=== PATIENT | female | born 1965 | race Caucasian/White ===

== ENCOUNTER 2016-04-27 01:43 | Inpatient (IN) | payer OTHER ==
[~2016-04-27] VITALS: Ht 162.6 cm; Wt 92.9 kg
[~2016-04-27 01:43] MED LIST: ADDERALL XR 2020 MG PO; AMBIEN10 MG PO; ATARAX,VISTARIL25 MG PO; BENTYL20 MG PO; CARAFATE1 GM PO; CELEBREX200 MG PO; CHANTIX1 MG PO; CLINDAGEL TP; COZAAR25 MG PO; DILAUDID2 MG PO; EFFEXOR XR75 MG PO; HYDROXYZINE PAM25 MG PO; IBUPROFEN600 MG PO; KENALOG,ARISTOC80 GM TP; KLONOPIN1 MG PO; LEVOFLOXACIN750 MG PO; LEVSIN-SL0.125 MG SL; LIDODERM 5% P1 PATCH TD; LORTAB 7.5/51 TABLET PO; LYRICA75 MG PO; MAXALT10 MG PO; METROCREAM45 GM TP; MOTRIN400 MG PO; NAPROSYN500 MG PO; NASONEX17 GM NS; NEURONTIN300 MG PO; NITROFURANTOIN100 MG PO; NIZORAL 2% CREA15 GM TP; NORVASC2.5 MG PO; PAXIL10 MG PO; PERCOCET 5/31 TABLET PO; PERCOCET 7.51 TABLET PO; PHENOBARBITAL32.4 MG PO; PLAQUENIL200 MG PO; PROTONIX40 MG PO; PROVENTIL,2.5 MG/3 M IH; PriLOSEC PO; Protonix PO; SALAGEN5 MG PO; SEROQUEL12.5 MG PO; SINGULAIR10 MG PO; SOMA250 MG PO; SOMA350 MG PO; TEMOVATE 0.05%30 GM TP; VENTOLIN HFA18 GM IH; VENTOLIN17 GM IH; VICOPROFEN 2001 EACH PO; VITAMIN D250000 UNIT PO; WELLBUTRIN SR150 MG PO; ZANAFLEX4 M1 PO; ZANTAC300 MG PO; ZOFRAN4 MG PO; ZOLOFT100 MG PO; ZOLOFT50 MG PO; ZOMIG5 MG PO; ZYRTEC10 M3 PO; Zantac PO
[2016-04-27 02:45] LABS: MCH 29.2 PG (29.0-34.0); MEAN PLAT.VOLUME 9.6 uM^3 (9.5-12.4); PLATELET COUNT 521 K/uL (156-360); RBC DIS.WIDTH-CV 14.3 % (11.8-14.6); RBC DIS.WIDTH-SD 43.7 % (39-53)
[2016-04-27 02:53] LABS: CHLORIDE 103 mEq/L (99-109)
[2016-04-27 02:54] LABS: POTASSIUM 4.5 mEq/L (3.7-5.4); SODIUM 138 mEq/L (136-147)
[2016-04-27 02:56] LABS: GLUCOSE 90 mg/dL (70-99)
[2016-04-27 02:57] LABS: ANION GAP 11 MEQ/L (2-14); PTT 49.2 (25-32)
[2016-04-27 02:58] LABS: TOTAL BILIRUBIN 0.4 mg/dL (0.0-1.0)
[2016-04-27 02:59] LABS: ALKALINE PHOSPHATASE 84 IU/L (3-129); GFR ESTIMATE (CALCULATED) 56 mL/min/
[2016-04-27 03:01] LABS: UREA NITROGEN (BUN) 19 mg/dL (9-23)
[2016-04-27 03:03] LABS: INTER. NORMALIZED RATIO 1.7; LIPASE 19 U/L (1.0-51.0); PROTHROMBIN TIME 17.4 (9.2-11.2)
[2016-04-27 03:10] LABS: QUANTITATIVE HCG < 4.0 MIU/ML
[2016-04-27 03:52] LABS: ADD MIUA? YES; BILIRUBIN NEGATIVE; BLOOD NEGATIVE; COLOR YELLOW ((YELLOW)); GLUCOSE (STRIP) NEGATIVE; KETONES NEGATIVE; LEUKOCYTES TRACE; NITRITE NEGATIVE; PH, URINE 6.5 (5-8); PROTEIN (STRIP) NEGATIVE; SPECIFIC GRAVITY 1.012 (1.000-1.030); UROBILINOGEN 0.2 MG/DL (0.2-1.0)
[2016-04-27 04:11] LABS: EPITHELIAL CELLS RARE; MUCUS RARE; RED BLOOD CELLS NONE SEEN /HPF (0-5); WHITE BLOOD CELLS 0-5 /HPF (0-5)
[2016-04-27 04:12] LABS: BACTERIA RARE; CASTS PRESENT /LPF; CRYSTALS NONE SEEN; HYALINE CASTS 0-5 /LPF; UCUL ADDED? NO
[2016-04-27] MEDS ORDERED: PREDNISONE2.5 MG PO (04:43)
[2016-04-27] MEDS ORDERED: PREDNISONE5 MG PO ×2 (04:44)
[2016-04-27 05:30] VITALS: BP 117/77
[2016-04-27 07:57] VITALS: BP 116/64
[2016-04-27 12:51] LABS: HEMATOCRIT 40.9 % (36.0-46.0); MCV 90.3 FL (83-99)
[2016-04-27] MEDS ORDERED: LYRICA100 MG PO (13:48)
[2016-04-27] MEDS ORDERED: ADDERALL XR 2020 MG PO (13:49)
[2016-04-27] MEDS ORDERED: WARFARIN SODIUM5 MG PO (13:50)
[2016-04-27] MEDS ORDERED: AVENTYL,PAMELOR25 MG PO (13:51)
[2016-04-27] MEDS ORDERED: AZELASTINE205.5 MCG/ BOTH NARES (13:51)
[2016-04-27] MEDS ORDERED: VALACYCLOVIR500 MG PO (13:52)
[2016-04-27] MEDS ORDERED: HYDROCODON-ACE1 EAC9 PO (13:53)
[2016-04-27] MEDS ORDERED: FENOFIBRATE160 M1 PO (13:54)
[2016-04-27] MEDS ORDERED: CYCLOBENZAPRINE5 MG PO (13:55)
[2016-04-27] MEDS ORDERED: ZOMIG5 MG PO (13:56)
[2016-04-27] MEDS ORDERED: SUMATRIPTAN SU100 MG PO (13:57)
[2016-04-27] MEDS ORDERED: ALBUTEROL2.5 MG/3 M IH (13:57)
[2016-04-27] MEDS ORDERED: ONDANSETRON HCL4 MG PO (13:58)
[2016-04-27] MEDS ORDERED: IRON325 M1 PO (14:00)
[2016-04-27] MEDS ORDERED: LIDOCAINE700 MG TD (14:00)
[2016-04-27] MEDS ORDERED: ONE DAILY WOME1 EAC2 PO (14:00)
[2016-04-27 19:05] LABS: HEMATOCRIT 42.5 % (36.0-46.0); MCV 90.4 FL (83-99)
[2016-04-27 23:23] VITALS: BP 118/62
[2016-04-28 03:13] LABS: BASOPHIL COUNT 0.1 K/uL (0-0.1); EOSINOPHIL (%) 2.2 % (0-5); EOSINOPHIL COUNT 0.3 K/uL (0-0.3); HEMATOCRIT 40.1 % (36.0-46.0); HEMATOCRIT 40.6 % (36.0-46.0); IMMATURE GRANULOCYTE (%) 0.6 % (0.0-0.7); LYMPHOCYTE COUNT 4.7 K/uL (1.0-2.8); MCH 29.8 PG (29.0-34.0); MCHC 33.9 G/DL (30.0-36.0); MCV 87.7 FL (83-99); MCV 88.3 FL (83-99); MONOCYTE (%) 8.1 % (3-12); MONOCYTE COUNT 1.3 K/uL (0-0.8); NEUTROPHIL (%) 58.3 % (45-76); NEUTROPHIL COUNT 9.1 K/uL (1.8-6.4); PLATELET COUNT 460 K/uL (156-360); RBC DIS.WIDTH-CV 14.7 % (11.8-14.6); RBC DIS.WIDTH-SD 46.3 % (39-53); RED BLOOD COUNT 4.57 M/uL (3.80-5.20); WHITE BLOOD COUNT 15.6 K/uL (4.1-10.2)
[2016-04-28 03:25] LABS: PTT 35.7 (25-32)
[2016-04-28 07:24] VITALS: BP 113/59
[2016-04-28 07:48] LABS: ALKALINE PHOSPHATASE 67 IU/L (3-129); ANION GAP 11 MEQ/L (2-14); CHLORIDE 109 MEQ/L (99-109); GFR ESTIMATE (CALCULATED) 56 mL/min/; GLUCOSE 105 mg/dL (70-99); SAMPLE HEMOLYSIS CHECK 3; SAMPLE ICTERIC CHECK 0; SAMPLE LIPEMIA CHECK 0; SODIUM 139 MEQ/L (136-147); TOTAL BILIRUBIN 0.6 MG/DL (0.0-1.0); UREA NITROGEN (BUN) 12 mg/dL (9-23)
[2016-04-28 07:49] LABS: POTASSIUM ND MEQ/L (3.7-5.4)
[2016-04-28 09:29] LABS: POTASSIUM 3.7 MEQ/L (3.7-5.4)
[2016-04-28 09:34] LABS: NO-CHARGE AST (GOT) 18 IU/L (15-37)
[2016-04-28 23:18] VITALS: BP 103/57
[2016-04-29 06:42] LABS: HEMATOCRIT 39.2 % (36.0-46.0); MCH 29.4 PG (29.0-34.0); MCHC 32.4 G/DL (30.0-36.0); MCV 90.7 FL (83-99); MEAN PLAT.VOLUME 10.5 uM^3 (9.5-12.4); PLATELET COUNT 491 K/uL (156-360); RBC DIS.WIDTH-CV 14.5 % (11.8-14.6); RED BLOOD COUNT 4.32 M/uL (3.80-5.20)
[2016-04-29 06:47] LABS: INTER. NORMALIZED RATIO 1.6; PROTHROMBIN TIME 16.2 (9.2-11.2)
[2016-04-29 07:23] VITALS: BP 116/54
[2016-04-29 15:29] VITALS: BP 128/74
[2016-04-29 23:38] VITALS: BP 118/71
[2016-04-30 07:00] VITALS: BP 107/56
[2016-04-30 07:13] LABS: INTER. NORMALIZED RATIO 1.6; PROTHROMBIN TIME 16.4 (9.2-11.2)
[2016-04-30 07:55] LABS: HEMATOCRIT 39.3 % (36.0-46.0); MCH 28.1 PG (29.0-34.0); MCHC 31.3 G/DL (30.0-36.0); MCV 89.9 FL (83-99); MEAN PLAT.VOLUME 10.2 uM^3 (9.5-12.4); PLATELET COUNT 482 K/uL (156-360); RBC DIS.WIDTH-CV 14.2 % (11.8-14.6); RBC DIS.WIDTH-SD 46.5 % (39-53); RED BLOOD COUNT 4.37 M/uL (3.80-5.20); WHITE BLOOD COUNT 13.6 K/uL (4.1-10.2)
[2016-04-30] MEDS ORDERED: METRONIDAZOLE500 MG PO (11:11)
[2016-04-30] MEDS ORDERED: CIPRO500 MG PO (11:11)
== END 2016-04-30 13:05 | disposition home or self-care (01) | DRG 394 ==
LOC: EME 01:43 → EDOF 04:08 → 5EAST 04:08
PROVIDERS: Emergency Medicine; Hospitalist; Internal Medicine; Specialist
DX: K55.9 Vascular disorder of intestine, unspecified (principal); K92.2 Gastrointestinal hemorrhage, unspecified; D68.61 Antiphospholipid syndrome; K64.8 Other hemorrhoids; I10 Essential (primary) hypertension; M35.9 Systemic involvement of connective tissue, unspecified; F32.9 Major depressive disorder, single episode, unspecified; F41.9 Anxiety disorder, unspecified; K21.9 Gastro-esophageal reflux disease without esophagitis; J45.909 Unspecified asthma, uncomplicated; M79.7 Fibromyalgia; M19.90 Unspecified osteoarthritis, unspecified site; Z79.01 Long term (current) use of anticoagulants; Z88.0 Allergy status to penicillin; Z88.5 Allergy status to narcotic agent; Z88.2 Allergy status to sulfonamides; Z87.891 Personal history of nicotine dependence; Z79.52 Long term (current) use of systemic steroids; Z86.718 Personal history of other venous thrombosis and embolism
CPT/HCPCS: 74177; 80053; 81003; 83605; 83630; 83690; 84702; 84999; 85014; 85018; 85025; 85027; 85610; 85730; 86850; 86900; 86901; 87177; 87493; 88305; 93005; 94760; 99202; 99281; 99285; B4087; C9113; J0744; J1170; J2405; J7030; S0030

== ENCOUNTER 2016-05-05 18:10 | Emergency (ER) | payer OTHER ==
[~2016-05-05] VITALS: Ht 165.1 cm; Wt 95.3 kg
[~2016-05-05 18:10] MED LIST changes: +ALBUTEROL2.5 MG/3 M IH; +AVENTYL,PAMELOR25 MG PO; +AZELASTINE205.5 MCG/ BOTH NARES; +CIPRO500 MG PO; +CYCLOBENZAPRINE5 MG PO; +FENOFIBRATE160 M1 PO; +HYDROCODON-ACE1 EAC9 PO; +IRON325 M1 PO; +LIDOCAINE700 MG TD; +LYRICA100 MG PO; +METRONIDAZOLE500 MG PO; +ONDANSETRON HCL4 MG PO; +ONE DAILY WOME1 EAC2 PO; +PREDNISONE2.5 MG PO; +PREDNISONE5 MG PO; +SUMATRIPTAN SU100 MG PO; +VALACYCLOVIR500 MG PO; +WARFARIN SODIUM5 MG PO
[2016-05-05 19:24] LABS: INTER. NORMALIZED RATIO 3.2; PROTHROMBIN TIME 33.3 (9.2-11.2); PTT 48.1 (25-32)
[2016-05-05 23:34] VITALS: BP 113/69
== END 2016-05-05 23:36 | disposition home or self-care (01) ==
LOC: EME 18:10 → EXP 18:10
DX: M79.662 Pain in left lower leg (principal); Z79.01 Long term (current) use of anticoagulants; J45.909 Unspecified asthma, uncomplicated; G89.29 Other chronic pain; M79.7 Fibromyalgia; I10 Essential (primary) hypertension; K21.9 Gastro-esophageal reflux disease without esophagitis; Z87.891 Personal history of nicotine dependence
CPT/HCPCS: 85610; 85730; 93005; 93971; 99281; 99283

== ENCOUNTER 2016-06-02 23:27 | Inpatient (IN) | payer OTHER ==
[~2016-06-02] VITALS: Ht 162.6 cm; Wt 94.2 kg
[2016-06-02 23:53] LABS: HEMATOCRIT 43.4 % (36.0-46.0); MCH 29.1 PG (29.0-34.0); MCHC 32.9 G/DL (30.0-36.0); MCV 88.2 FL (83-99); MEAN PLAT.VOLUME 10.3 uM^3 (9.5-12.4); PLATELET COUNT 415 K/uL (156-360); RBC DIS.WIDTH-CV 14.6 % (11.8-14.6); RBC DIS.WIDTH-SD 46.6 % (39-53); RED BLOOD COUNT 4.92 M/uL (3.80-5.20); WHITE BLOOD COUNT 13.4 K/uL (4.1-10.2)
[2016-06-03 00:09] LABS: CHLORIDE 107 mEq/L (99-109); POTASSIUM 4.6 mEq/L (3.7-5.4); SODIUM 139 mEq/L (136-147)
[2016-06-03 00:11] LABS: GLUCOSE 102 mg/dL (70-99)
[2016-06-03 00:12] LABS: ANION GAP 10 MEQ/L (2-14)
[2016-06-03 00:13] LABS: TOTAL BILIRUBIN 0.3 mg/dL (0.0-1.0)
[2016-06-03 00:15] LABS: ALKALINE PHOSPHATASE 94 IU/L (3-129); GFR ESTIMATE (CALCULATED) 56 mL/min/
[2016-06-03 00:16] LABS: UREA NITROGEN (BUN) 14 mg/dL (9-23)
[2016-06-03 00:24] LABS: QUANTITATIVE HCG < 4.0 MIU/ML
[2016-06-03 01:17] LABS: ADD MIUA? NO; BILIRUBIN NEGATIVE; BLOOD NEGATIVE; COLOR YELLOW ((YELLOW)); GLUCOSE (STRIP) NEGATIVE; KETONES NEGATIVE; LEUKOCYTES NEGATIVE; NITRITE NEGATIVE; PROTEIN (STRIP) NEGATIVE; SPECIFIC GRAVITY 1.011 (1.000-1.030); UCUL ADDED? NO; UROBILINOGEN 0.2 MG/DL (0.2-1.0)
[2016-06-03 01:34] LABS: INTER. NORMALIZED RATIO 3.9; PROTHROMBIN TIME 41.4 (9.2-11.2)
[2016-06-03] MEDS ORDERED: DILTIAZEM 24HR180 MG PO (05:34)
[2016-06-03 06:39] LABS: HEMATOCRIT 40.1 % (36.0-46.0); MCV 89.3 FL (83-99)
[2016-06-03] MEDS ORDERED: PREDNISONE5 MG PO (08:04)
[2016-06-03] MEDS ORDERED: SERTRALINE HCL50 MG PO (08:05)
[2016-06-03 10:30] VITALS: BP 102/57
[2016-06-03 11:22] VITALS: BP 102/57
[2016-06-03 12:04] LABS: HEMATOCRIT 38.2 % (36.0-46.0); MCV 89.3 FL (83-99)
[2016-06-03 15:11] VITALS: BP 106/50
[2016-06-03 18:02] LABS: HEMATOCRIT 41.4 % (36.0-46.0); MCV 90.8 FL (83-99)
[2016-06-03 23:27] VITALS: BP 116/63
[2016-06-04 00:56] LABS: HEMATOCRIT 39.4 % (36.0-46.0)
[2016-06-04 07:01] LABS: INTER. NORMALIZED RATIO 4.3; PROTHROMBIN TIME 45.3 (9.2-11.2)
[2016-06-04 07:15] LABS: HEMATOCRIT 41.7 % (36.0-46.0); MCH 28.9 PG (29.0-34.0); MCHC 31.7 G/DL (30.0-36.0); MCV 91.2 FL (83-99); RED BLOOD COUNT 4.57 M/uL (3.80-5.20)
[2016-06-04 07:39] VITALS: BP 105/57
[2016-06-04 08:41] LABS: WHITE BLOOD COUNT 7.9 K/uL (4.1-10.2)
[2016-06-04 08:55] LABS: MEAN PLAT.VOLUME 11.2 uM^3 (9.5-12.4)
[2016-06-04 09:29] LABS: PLATELET COUNT 254 K/uL (156-360)
[2016-06-04 09:39] LABS: ANION GAP 4 MEQ/L (2-14); CHLORIDE 110 MEQ/L (99-109); POTASSIUM 3.9 MEQ/L (3.7-5.4); SAMPLE HEMOLYSIS CHECK 0; SAMPLE ICTERIC CHECK 0; SAMPLE LIPEMIA CHECK 0; SODIUM 142 MEQ/L (136-147); TOTAL BILIRUBIN 0.5 MG/DL (0.0-1.0)
[2016-06-04 09:45] LABS: ALKALINE PHOSPHATASE 66 IU/L (3-129); GFR ESTIMATE (CALCULATED) > 59 mL/min/; GLUCOSE 79 mg/dL (70-99); UREA NITROGEN (BUN) 8 mg/dL (9-23)
[2016-06-04 15:05] VITALS: BP 118/78
[2016-06-05 00:02] VITALS: BP 137/82
[2016-06-05 07:09] LABS: HEMATOCRIT 41.6 % (36.0-46.0); MCH 28.7 PG (29.0-34.0); MCHC 31.7 G/DL (30.0-36.0); MCV 90.4 FL (83-99); RBC DIS.WIDTH-CV 14.7 % (11.8-14.6); WHITE BLOOD COUNT 9.1 K/uL (4.1-10.2)
[2016-06-05 07:17] LABS: MEAN PLAT.VOLUME 10.4 uM^3 (9.5-12.4)
[2016-06-05 07:20] LABS: PLATELET COUNT 426 K/uL (156-360)
[2016-06-05 07:21] VITALS: BP 119/57
[2016-06-05 08:19] LABS: INTER. NORMALIZED RATIO 2.8; PROTHROMBIN TIME 29.6 (9.2-11.2)
[2016-06-05 10:58] VITALS: BP 135/80
== END 2016-06-05 13:45 | disposition home or self-care (01) | DRG 378 ==
LOC: EME 23:27 → EDOF 06-03 05:01 → 5SOUTH 06-03 05:01
PROVIDERS: Hospitalist; Internal Medicine; Internal Medicine Gastroenterology; Nurse Practitioner Adult Health
DX: K92.2 Gastrointestinal hemorrhage, unspecified (principal); D68.61 Antiphospholipid syndrome; B02.29 Other postherpetic nervous system involvement; F32.9 Major depressive disorder, single episode, unspecified; G43.909 Migraine, unspecified, not intractable, without status migrainosus; K21.9 Gastro-esophageal reflux disease without esophagitis; I10 Essential (primary) hypertension; J45.909 Unspecified asthma, uncomplicated; L94.8 Other specified localized connective tissue disorders; K58.1 Irritable bowel syndrome with constipation; Z88.0 Allergy status to penicillin; Z88.5 Allergy status to narcotic agent; Z88.2 Allergy status to sulfonamides; Z87.891 Personal history of nicotine dependence; Z79.01 Long term (current) use of anticoagulants; Z86.73 Personal history of transient ischemic attack (TIA), and cerebral infarction without residual deficits
CPT/HCPCS: 74177; 80053; 81003; 84702; 85014; 85018; 85027; 85610; 86850; 86900; 86901; 99202; 99281; 99285; C9113; J1170; J2405; J7030

== ENCOUNTER 2016-07-15 03:06 | Inpatient (IN) | payer OTHER ==
[~2016-07-15] VITALS: Ht 162.6 cm; Wt 92.4 kg
[~2016-07-15 03:06] MED LIST changes: +DILTIAZEM 24HR180 MG PO; +SERTRALINE HCL50 MG PO
[2016-07-15 04:12] LABS: BASOPHIL COUNT 0.1 K/uL (0-0.1); EOSINOPHIL (%) 0.3 % (0-5); EOSINOPHIL COUNT 0.1 K/uL (0-0.3); HEMATOCRIT 41.1 % (36.0-46.0); IMMATURE GRANULOCYTE (%) 0.7 % (0.0-0.7); IMMATURE GRANULOCYTE COUNT 0.1 K/uL; INSTRUMENT ABS NEUTROPHIL CT 13.4 K/uL; LYMPHOCYTE COUNT 2.9 K/uL (1.0-2.8); MCH 29.3 PG (29.0-34.0); MCHC 33.3 G/DL (30.0-36.0); MCV 87.8 FL (83-99); MEAN PLAT.VOLUME 9.8 uM^3 (9.5-12.4); MONOCYTE (%) 6.5 % (3-12); MONOCYTE COUNT 1.2 K/uL (0-0.8); NEUTROPHIL (%) 75.6 % (45-76); NEUTROPHIL COUNT 13.4 K/uL (1.8-6.4); PLATELET COUNT 425 K/uL (156-360); RBC DIS.WIDTH-CV 13.2 % (11.8-14.6); RBC DIS.WIDTH-SD 42.4 % (39-53); RED BLOOD COUNT 4.68 M/uL (3.80-5.20); WHITE BLOOD COUNT 17.8 K/uL (4.1-10.2)
[2016-07-15 04:22] LABS: CHLORIDE 100 mEq/L (99-109); POTASSIUM 3.3 mEq/L (3.7-5.4); SODIUM 132 mEq/L (136-147)
[2016-07-15 04:24] LABS: GLUCOSE 94 mg/dL (70-99)
[2016-07-15 04:25] LABS: ANION GAP 15 MEQ/L (2-14)
[2016-07-15 04:26] LABS: TOTAL BILIRUBIN 0.2 mg/dL (0.0-1.0)
[2016-07-15 04:27] LABS: ALKALINE PHOSPHATASE 62 IU/L (3-129)
[2016-07-15 04:28] LABS: GFR ESTIMATE (CALCULATED) 14 mL/min/
[2016-07-15 04:29] LABS: UREA NITROGEN (BUN) 21 mg/dL (9-23)
[2016-07-15 04:31] LABS: LIPASE 20 U/L (1.0-51.0)
[2016-07-15 04:34] LABS: TROP-I INTERPRETATION NEGATIVE; TROPONIN-I < 0.01 ng/mL (0.0-0.30)
[2016-07-15 04:35] LABS: INFLUENZA A VIRAL ANTIGEN POSITIVE; INFLUENZA B VIRAL ANTIGEN NEGATIVE
[2016-07-15 05:59] LABS: INTER. NORMALIZED RATIO 3.5; PROTHROMBIN TIME 37.5 (9.2-11.2); PTT 78.4 (25-32)
[2016-07-15 06:08] LABS: CREATINE KINASE 59 IU/L (1-294)
[2016-07-15 08:54] LABS: ADD MIUA? YES; BILIRUBIN NEGATIVE; BLOOD NEGATIVE; COLOR AMBER ((YELLOW)); GLUCOSE (STRIP) NEGATIVE; KETONES NEGATIVE; LEUKOCYTES NEGATIVE; NITRITE NEGATIVE; PROTEIN (STRIP) 30; SPECIFIC GRAVITY 1.011 (1.000-1.030); UROBILINOGEN 0.2 MG/DL (0.2-1.0)
[2016-07-15 09:02] LABS: BACTERIA RARE /HPF; EPITHELIAL CELLS RARE /HPF; MUCUS TRACE /LPF; RED BLOOD CELLS 0-5 /HPF (0-5); UCUL ADDED? NO; UNCLASSIFIED CASTS 0-5 /LPF; UNCLASSIFIED CRYSTALS 1+ /HPF
[2016-07-15 11:22] LABS: TROP-I INTERPRETATION NEGATIVE; TROPONIN-I < 0.01 ng/mL (0.0-0.30)
[2016-07-15 13:10] VITALS: BP 120/62
[2016-07-15 16:01] VITALS: BP 122/60
[2016-07-15 17:42] LABS: TROP-I INTERPRETATION NEGATIVE; TROPONIN-I < 0.01 ng/mL (0.0-0.30)
[2016-07-15 20:09] VITALS: BP 100/46
[2016-07-15 23:32] VITALS: BP 92/51
[2016-07-16 03:44] VITALS: BP 123/65
[2016-07-16 07:10] LABS: INTER. NORMALIZED RATIO 4.4; PROTHROMBIN TIME 46.8 (9.2-11.2)
[2016-07-16 07:18] LABS: ALKALINE PHOSPHATASE 48 IU/L (3-129); ANION GAP 8 MEQ/L (2-14); CHLORIDE 112 MEQ/L (99-109); GLUCOSE 97 mg/dL (70-99); SAMPLE HEMOLYSIS CHECK 0; SAMPLE ICTERIC CHECK 0; SAMPLE LIPEMIA CHECK 0; TOTAL BILIRUBIN 0.2 MG/DL (0.0-1.0); UREA NITROGEN (BUN) 16 mg/dL (9-23)
[2016-07-16 07:21] LABS: GFR ESTIMATE (CALCULATED) 34 mL/min/; POTASSIUM 4.4 MEQ/L (3.7-5.4); SODIUM 141 MEQ/L (136-147)
[2016-07-16 07:31] LABS: HEMATOCRIT 33.5 % (36.0-46.0); MCH 28.5 PG (29.0-34.0); MCHC 32.2 G/DL (30.0-36.0); MCV 88.4 FL (83-99); MEAN PLAT.VOLUME 10.1 uM^3 (9.5-12.4); PLATELET COUNT 357 K/uL (156-360); RBC DIS.WIDTH-CV 14.2 % (11.8-14.6); RBC DIS.WIDTH-SD 45.9 % (39-53); RED BLOOD COUNT 3.79 M/uL (3.80-5.20); WHITE BLOOD COUNT 14.3 K/uL (4.1-10.2)
[2016-07-16 07:33] VITALS: BP 113/61
[2016-07-16 11:17] VITALS: BP 106/53
[2016-07-16 16:00] VITALS: BP 108/64
[2016-07-16 20:09] VITALS: BP 131/72
[2016-07-17 00:07] VITALS: BP 135/69
[2016-07-17 07:01] LABS: BASOPHIL COUNT 0.1 K/uL (0-0.1); EOSINOPHIL (%) 1.8 % (0-5); EOSINOPHIL COUNT 0.3 K/uL (0-0.3); HEMATOCRIT 32.3 % (36.0-46.0); IMMATURE GRANULOCYTE (%) 0.6 % (0.0-0.7); IMMATURE GRANULOCYTE COUNT 0.1 K/uL; INSTRUMENT ABS NEUTROPHIL CT 8.3 K/uL; LYMPHOCYTE COUNT 5.5 K/uL (1.0-2.8); MCH 28.5 PG (29.0-34.0); MCHC 31.9 G/DL (30.0-36.0); MCV 89.5 FL (83-99); MEAN PLAT.VOLUME 10.2 uM^3 (9.5-12.4); MONOCYTE (%) 7.8 % (3-12); MONOCYTE COUNT 1.2 K/uL (0-0.8); NEUTROPHIL COUNT 8.3 K/uL (1.8-6.4); NRBC (%) 0.1 /100 WBC (0-0); PLATELET COUNT 391 K/uL (156-360); RBC DIS.WIDTH-CV 14.5 % (11.8-14.6); RBC DIS.WIDTH-SD 47.3 % (39-53); RED BLOOD COUNT 3.61 M/uL (3.80-5.20); WHITE BLOOD COUNT 15.5 K/uL (4.1-10.2)
[2016-07-17 07:11] LABS: INTER. NORMALIZED RATIO 3.2
[2016-07-17 07:12] LABS: PROTHROMBIN TIME 33.5 (9.2-11.2)
[2016-07-17 07:40] LABS: ANION GAP 6 MEQ/L (2-14); CHLORIDE 108 MEQ/L (99-109); GFR ESTIMATE (CALCULATED) > 59 mL/min/; GLUCOSE 70 mg/dL (70-99); MAGNESIUM 1.5 mg/dl (1.3-2.7); POTASSIUM 4.3 MEQ/L (3.7-5.4); SAMPLE HEMOLYSIS CHECK 0; SAMPLE ICTERIC CHECK 0; SAMPLE LIPEMIA CHECK 0; SODIUM 142 MEQ/L (136-147); UREA NITROGEN (BUN) 11 mg/dL (9-23)
[2016-07-17 08:02] VITALS: BP 114/76
[2016-07-17 12:10] VITALS: BP 122/74
[2016-07-17] MEDS ORDERED: OSELTAMIVIR PHO30 MG PO (16:19)
[2016-07-17 17:20] VITALS: BP 124/72
== END 2016-07-17 17:30 | disposition home or self-care (01) | DRG 871 ==
LOC: EME 03:06 → EDOF 07:37 → 5SOUTH 07:37 → EDOF 07:43 → 5SOUTH 12:39
PROVIDERS: Emergency Medicine; Internal Medicine; Internal Medicine Nephrology
DX: A41.9 Sepsis, unspecified organism (principal); R65.21 Severe sepsis with septic shock; N17.0 Acute kidney failure with tubular necrosis; J18.9 Pneumonia, unspecified organism; J09.X1 Influenza due to identified novel influenza A virus with pneumonia; E87.1 Hypo-osmolality and hyponatremia; E87.2 Acidosis; F33.9 Major depressive disorder, recurrent, unspecified; J09.X2 Influenza due to identified novel influenza A virus with other respiratory manifestations; E87.6 Hypokalemia; R79.1 Abnormal coagulation profile; K52.9 Noninfective gastroenteritis and colitis, unspecified; T45.515A Adverse effect of anticoagulants, initial encounter; L94.8 Other specified localized connective tissue disorders; M12.9 Arthropathy, unspecified; J45.909 Unspecified asthma, uncomplicated; I10 Essential (primary) hypertension; G93.89 Other specified disorders of brain; E86.0 Dehydration; Z90.81 Acquired absence of spleen; Z88.0 Allergy status to penicillin; Z88.5 Allergy status to narcotic agent; Z88.2 Allergy status to sulfonamides; Z87.891 Personal history of nicotine dependence; Z82.49 Family history of ischemic heart disease and other diseases of the circulatory system
CPT/HCPCS: 70450; 71020; 76770; 80048; 80053; 81003; 82550; 83605; 83690; 83735; 84100; 84484; 85025; 85027; 85610; 85730; 87040; 87502; 93005; 94799; 99202; 99281; 99285; J0780; J1200; J1885; J3370; J7030; J7050; J7060; J7512; S0073

== ENCOUNTER → 2017-06-17 | Outpatient (CLI) | payer OTHER ==
[~2017-06-17] MED LIST changes: +OSELTAMIVIR PHO30 MG PO
== END | disposition home or self-care (01) ==
LOC: NUC 06-15 09:00
DX: R25.1 Tremor, unspecified (principal)
CPT/HCPCS: 78607; A9584

== ENCOUNTER 2017-09-21 10:26 | Day surgery (SDC) | payer OTHER ==
[~2017-09-21] VITALS: Ht 165.1 cm; Wt 98.4 kg
[~2017-09-21 10:26] MED LIST changes: +ABILIFY10 MG PO; +AZELASTINE137 MCG/0. BOTH NARES; +CLARITHROMYCIN500 M1 PO; +CLOBETASOL EMOL45 GM TP; +CLONAZEPAM1 M1 PO; +COLACE100 MG PO; +CYANOCOBAL1000 MCG/2 IM; +DAILY MULTIPLE1 EACH PO; +DILTIAZEM 24HR180 M3 PO; +ERGOCALCIF50000 UNIT PO; +FEOSOL325 MG PO; +FLOVENT DISKUS1 DIS2 IH; +LIDOCAINE700 MG TP; +LIORESAL10 MG PO; +OXYCODONE-APAP1 EACH PO; +PROMETHAZI6.25 MG/5 PO; -SERTRALINE HCL50 MG PO; +VALTREX50 MG/ML PO; +ZOMIG ZMT5 MG PO
[2017-09-27] MEDS ORDERED: ADDERALL XR 2020 MG PO (10:52)
[2017-09-27] MEDS ORDERED: KLONOPIN1 MG PO (10:53)
[2017-09-27] MEDS ORDERED: FLONASE ALLERG9.9 ML BOTH NARES (10:54)
[2017-09-27] MEDS ORDERED: NIZORAL 2% CREA15 GM TP (10:55)
[2017-09-27] MEDS ORDERED: AMBIEN5 MG PO (10:56)
== END 2017-09-21 11:50 | disposition home or self-care (01) ==
LOC: PAIN 10:26 → SDC 11:00 → PAIN 11:50
DX: M47.816 Spondylosis without myelopathy or radiculopathy, lumbar region (principal); M79.7 Fibromyalgia; I12.9 Hypertensive chronic kidney disease with stage 1 through stage 4 chronic kidney disease, or unspecified chronic kidney disease; N18.3 Chronic kidney disease, stage 3 (moderate); K21.9 Gastro-esophageal reflux disease without esophagitis; J45.909 Unspecified asthma, uncomplicated; Z87.891 Personal history of nicotine dependence; Z88.8 Allergy status to other drugs, medicaments and biological substances; Z88.0 Allergy status to penicillin; Z86.73 Personal history of transient ischemic attack (TIA), and cerebral infarction without residual deficits; Z79.01 Long term (current) use of anticoagulants; Z79.891 Long term (current) use of opiate analgesic
CPT/HCPCS: J1030; J2250; S0020

== ENCOUNTER 2017-09-28 10:33 | Day surgery (SDC) | payer OTHER ==
[~2017-09-28] VITALS: Ht 165.1 cm; Wt 98.4 kg
[~2017-09-28 10:33] MED LIST changes: +AMBIEN5 MG PO; +FLONASE ALLERG9.9 ML BOTH NARES
== END 2017-09-28 12:45 | disposition home or self-care (01) ==
LOC: PAIN 10:33 → SDC 11:15 → PAIN 12:45
DX: M47.16 Other spondylosis with myelopathy, lumbar region (principal); M79.7 Fibromyalgia; I12.9 Hypertensive chronic kidney disease with stage 1 through stage 4 chronic kidney disease, or unspecified chronic kidney disease; N18.3 Chronic kidney disease, stage 3 (moderate); G47.30 Sleep apnea, unspecified; J45.909 Unspecified asthma, uncomplicated; K21.9 Gastro-esophageal reflux disease without esophagitis; Z86.73 Personal history of transient ischemic attack (TIA), and cerebral infarction without residual deficits; Z79.01 Long term (current) use of anticoagulants; Z88.0 Allergy status to penicillin; Z88.5 Allergy status to narcotic agent; E66.3 Overweight; Z68.36 Body mass index [BMI] 36.0-36.9, adult
CPT/HCPCS: J2250; S0020

== ENCOUNTER 2017-11-15 07:21 | Day surgery (SDC) | payer OTHER ==
[~2017-11-15] VITALS: Ht 165.1 cm; Wt 98.4 kg
[2017-11-15 08:18] LABS: BASOPHIL COUNT 0.2 K/uL (0-0.1); EOSINOPHIL (%) 5.3 % (0-5); EOSINOPHIL COUNT 0.5 K/uL (0-0.3); HEMATOCRIT 41.4 % (36.0-46.0); HEMOGLOBIN 13.4 G/DL (11.9-15.5); IMMATURE GRANULOCYTE (%) 0.4 % (0.0-0.7); INTER. NORMALIZED RATIO 1.3; LYMPHOCYTE (%) 51.9 % (15-42); LYMPHOCYTE COUNT 5.2 K/uL (1.0-2.8); MCH 28.2 PG (29.0-34.0); MCHC 32.4 G/DL (30.0-36.0); MCV 87.2 FL (83-99); MONOCYTE (%) 9.4 % (3-12); MONOCYTE COUNT 0.9 K/uL (0-0.8); NEUTROPHIL COUNT 3.1 K/uL (1.8-6.4); NRBC (%) 0.2 /100 WBC (0-0); PLATELET COUNT 382 K/uL (156-360); RBC DIS.WIDTH-CV 14.5 % (11.8-14.6); RBC DIS.WIDTH-SD 45.9 % (39-53); RED BLOOD COUNT 4.75 M/uL (3.80-5.20); WHITE BLOOD COUNT 9.9 K/uL (4.1-10.2)
[2017-11-15 08:21] LABS: PTT 46.7 SEC (25-37)
[2017-11-15 08:50] LABS: CHLORIDE 104 MEQ/L (99-109); CREATININE 0.9 MG/DL (0.6-1.3); GFR ESTIMATE (CALCULATED) > 59 mL/min/; GLUCOSE 92 mg/dL (70-99); POTASSIUM 4.1 MEQ/L (3.7-5.4); SODIUM 143 MEQ/L (136-147); UREA NITROGEN (BUN) 17 mg/dL (9-23)
== END 2017-11-15 09:27 | disposition home or self-care (01) ==
LOC: PAIN 07:21 → SDC 08:30 → PAIN 09:27
PROVIDERS: Anesthesiology Pain Medicine
DX: M47.816 Spondylosis without myelopathy or radiculopathy, lumbar region (principal); M47.16 Other spondylosis with myelopathy, lumbar region; G89.4 Chronic pain syndrome; M35.1 Other overlap syndromes; G60.9 Hereditary and idiopathic neuropathy, unspecified; Z87.891 Personal history of nicotine dependence; Z88.8 Allergy status to other drugs, medicaments and biological substances; Z88.1 Allergy status to other antibiotic agents
CPT/HCPCS: 80048; 85025; 85610; 85730; J1030; J2250; J3010; S0020

== ENCOUNTER 2017-11-29 07:54 | Day surgery (SDC) | payer OTHER ==
[~2017-11-29] VITALS: Ht 165.1 cm; Wt 98.4 kg
[~2017-11-29 07:54] MED LIST changes: -ABILIFY10 MG PO; +ABILIFY15 MG PO; +COUMADIN4 MG PO; +NEURONTIN600 MG PO; -WARFARIN SODIUM5 MG PO
== END 2017-11-29 09:25 | disposition home or self-care (01) ==
LOC: PAIN 07:54 → SDC 08:00 → PAIN 08:00
DX: M47.816 Spondylosis without myelopathy or radiculopathy, lumbar region (principal); M79.7 Fibromyalgia; M35.1 Other overlap syndromes; M17.10 Unilateral primary osteoarthritis, unspecified knee; J45.909 Unspecified asthma, uncomplicated; I12.9 Hypertensive chronic kidney disease with stage 1 through stage 4 chronic kidney disease, or unspecified chronic kidney disease; N18.3 Chronic kidney disease, stage 3 (moderate); K21.9 Gastro-esophageal reflux disease without esophagitis; F41.9 Anxiety disorder, unspecified; Z79.899 Other long term (current) drug therapy; Z87.891 Personal history of nicotine dependence; Z86.73 Personal history of transient ischemic attack (TIA), and cerebral infarction without residual deficits; Z79.01 Long term (current) use of anticoagulants
CPT/HCPCS: J1030; J2250; J3010; S0020